=== PATIENT | female | born 1995 | race Two or more races ===

== ENCOUNTER 2024-10-31 09:54 | Outpatient (CLI) | payer OTHER | END 2024-10-31 09:57 | disposition home or self-care (01) | LOC: SONOGRAMA 09:54 | PROVIDERS: ATTEND Pathology Anatomic Pathology & Clinical Pathology | DX: D44.0 Neoplasm of uncertain behavior of thyroid gland (principal); E04.2 Nontoxic multinodular goiter ==

== ENCOUNTER 2024-12-21 08:15 | Inpatient (IN) | payer OTHER ==
[~2024-12-21] VITALS: Ht 162.6 cm; Wt 174.6 kg
[2024-12-21 09:05] LABS: HEMATOCRIT 35.4 % (36.0-45.00); HEMOGLOBIN 11.7 g/dL (12.0-15.00); MEAN CELL VOLUME 80.5 fL (80.00-100.00); MEAN CORPUSCULAR HEMOGLOBIN 26.6 pg (27.00-32.0); MEAN CORPUSCULAR HGB CONC 33.1 g/dl (32.0-36.0); PLATELET COUNT 270 K/uL (150-450); RED CELL DISTRIBUTION WIDTH 15.3 % (11.5-14.5)
[2024-12-21 09:08] LABS: PH,URINE 6.5 (5.0-8.0); URINE APPEARANCE Clear; URINE BILIRRUBIN Negative (NEGATIVE); URINE BLOOD Negative; URINE COLOR Yellow; URINE GLUCOSE Negative (NEGATIVE); URINE KETONE Negative (NEGATIVE); URINE LEUKOCYTE Negative; URINE NITRATE Negative; URINE PROTEIN Negative (NEGATIVE); URINE UROBILINOGEN 0.2 E.U./dl
[2024-12-21 09:11] LABS: URINE BACTERIA 270.5 uL (0.0-1933); URINE RBC 13.6 uL (0.0-20.8); URINE WBC 6.1 uL (0.0-23.2)
[2024-12-21 09:23] LABS: URINE CAST 0.14 uL (0.0-1.40)
[2024-12-21 09:38] VITALS: BP 131/82
[2024-12-21 09:43] LABS: INR 1.04; PARTIAL THROMBOPLASTIN TIME 31.1 SECONDS (22.0-34.0); PROTHROMBIN TIME 11.3 SECONDS (9.0-11.5)
[2024-12-21 10:13] LABS: ALBUMIN 3.3 gm/dL (3.4-5.0); BILIRUBIN TOTAL 0.44 mg/dL (0.3-1.2); CALCIUM 8.8 mg/dL (8.5-10.1); CREATININE SERUM 0.67 mg/dL (0.55-1.02); GFR 104.06; GLOBULINA 3.9 G/DL (2.4-3.5); POTASSIUM 4.35 mEq/L (3.5-5.1); TOTAL PROTEIN 7.2 gm/dL (6.4-8.2)
[2024-12-29] MEDS ORDERED: DEXAMETHASONE SODIUM PHOSPHATE 4 MG/ML VIAL ONE (12:02)
[2024-12-29] MEDS ORDERED: OXYMETAZOLINE HCL 15 ML BOTTLE NASAL ONE (13:51)
[2024-12-29] MEDS ORDERED: ONDANSETRON HCL 2 MG/ML VIAL IV PRN (14:00)
[2024-12-29] MEDS ORDERED: ENALAPRILAT DIHYDRATE 1.25 MG/ML VIAL IV PRN (14:00)
[2024-12-29] MEDS ORDERED: MORPHINE SULFATE 4 MG/ML VIAL IV ONE (16:35)
[2024-12-29] MEDS ORDERED: GABAPENTIN 100 MG CAPSULE PO SCH (17:00)
[2024-12-29] MEDS ORDERED: TRAMADOL HCL 50 MG TABLET PO SCH (17:00)
[2024-12-29] MEDS ORDERED: ACETAMINOPHEN 500 MG GEL..CAP PO SCH (17:00)
[2024-12-29] MEDS ORDERED: CYCLOBENZAPRINE HCL 5 MG TABLET PO SCH (17:00)
[2024-12-29 19:41] VITALS: BP 136/87; O2SAT 95
[2024-12-29] MEDS ORDERED: DIPHENHYDRAMINE HCL 30 MG,LIDOCAINE HCL 30 ML,MAG HYDROX/ALUMINUM HYD/SIMETH 30 ML PO SCH (19:47)
[2024-12-30 00:11] VITALS: BP 131/78; O2SAT 98
[2024-12-30 08:00] VITALS: BP 128/77; O2SAT 96
[2024-12-30] MEDS ORDERED: DIPHENHYDRAMINE HCL 150 MG,LIDOCAINE HCL 60 ML,MAG HYDROX/ALUMINUM HYD/SIMETH 60 ML PO SCH (09:00)
== END 2024-12-30 14:48 | disposition home or self-care (01) | DRG 627 ==
LOC: O/R 12-29 05:11 → SURG 12-29 05:11 → SURH 12-29 08:15 → SURG 12-29 14:19
PROVIDERS: ADMIT Surgery; ATTEND Surgery
PROC: 0GTG0ZZ Resection of Left Thyroid Gland Lobe, Open Approach (ICD-10-PCS; principal; 2024-12-29 09:45)
DX: C73 Malignant neoplasm of thyroid gland (principal); E04.2 Nontoxic multinodular goiter

== ENCOUNTER 2025-01-30 10:58 | Outpatient (CLI) | payer OTHER | END 2025-01-30 11:03 | disposition home or self-care (01) | LOC: SONOGRAMA 10:58 | PROVIDERS: ATTEND Pathology Anatomic Pathology | DX: E04.2 Nontoxic multinodular goiter (principal); C73 Malignant neoplasm of thyroid gland ==

== ENCOUNTER 2025-02-28 07:15 | Inpatient (IN) | payer OTHER ==
[~2025-02-28] VITALS: Ht 162.6 cm; Wt 181.4 kg
[2025-02-28 08:07] LABS: BASO % 0.4 % (0.1-1.2); EOS # 0.27 (0.04-0.54); EOS % 2.4 % (0.7-7.0); LYMPH # 3.02 (1.18-3.74); LYMPH % 27.1 % (19.3-53.1); MEAN PLATELET VOLUME 10.00 fl (9.4-12.4); MONO # 0.47 (0.24-0.82); MONO % 4.2 % (4.7-12.5); NEUT # 7.25 (1.56-6.13); NEUT % 65.1 % (34.0-71.1); RED CELL DISTRIBUTION WIDTH 14.4 % (11.6-14.4)
[2025-02-28 08:08] LABS: URINE APPEARANCE Clear; URINE BILIRRUBIN Negative (NEGATIVE); URINE BLOOD Negative; URINE COLOR Yellow; URINE GLUCOSE Negative (NEGATIVE); URINE KETONE Negative (NEGATIVE); URINE LEUKOCYTE Negative; URINE NITRATE Negative; URINE PROTEIN Negative (NEGATIVE); URINE UROBILINOGEN 0.2 E.U./dl
[2025-02-28 08:12] LABS: URINE BACTERIA 83.9 uL (0.0-1933); URINE EPITHELIAL CELLS 3.8 uL (0.0-38.8); URINE RBC 9.9 uL (0.0-20.8); URINE WBC 3.2 uL (0.0-23.2)
[2025-02-28 08:14] LABS: URINE CAST 0.14 uL (0.0-1.40)
[2025-02-28 08:28] LABS: INR 1.05
[2025-02-28] MEDS ORDERED: LEVOTHYROXINE25 MCG PO (08:59)
[2025-02-28] MEDS ORDERED: MAXIMUM D3325 MCG PO (09:00)
[2025-02-28 09:01] VITALS: BP 124/66
[2025-02-28 09:33] LABS: ALT/SGPT 27.0 U/L (12-78); AST/SGOT 14.0 U/L (15-37); BILIRUBIN TOTAL 0.54 mg/dL (0.3-1.2); BUN CREA RATIO 19.0 (7.0-25.0); CREATININE SERUM 0.62 mg/dL (0.55-1.02); GFR 113.8; GLOBULINA 3.9 G/DL (2.4-3.5); GLUCOSE FASTING 88.0 mg/dL (65-100); OSMOLALITY SERUM 280.0 MOSM/KG (275-295)
[2025-03-07] MEDS ORDERED: ONDANSETRON HCL 2 MG/ML VIAL IV PRN (12:15)
[2025-03-07] MEDS ORDERED: DEXAMETHASONE SODIUM PHOSPHATE 4 MG/ML VIAL ONE (12:25)
[2025-03-07] MEDS ORDERED: MORPHINE SULFATE 4 MG/ML VIAL IV ONE (14:25)
[2025-03-07] MEDS ORDERED: ACETAMINOPHEN 500 MG GEL..CAP PO SCH (17:00)
[2025-03-07] MEDS ORDERED: LIDOCAINE HCL 30 ML,MAG HYDROX/ALUMINUM HYD/SIMETH 30 ML,DIPHENHYDRAMINE HCL 75 MG MM SCH (17:00)
[2025-03-07] MEDS ORDERED: CYCLOBENZAPRINE HCL 5 MG TABLET PO SCH (17:00)
[2025-03-07] MEDS ORDERED: TRAMADOL HCL 50 MG TABLET PO SCH (17:00)
[2025-03-07 19:46] VITALS: BP 126/82
[2025-03-07] MEDS ORDERED: Calcium Carbonate 1 TAB TABLET PO SCH (21:00)
[2025-03-07] MEDS ORDERED: PANTOPRAZOLE SODIUM 40 MG/VIAL VIAL IV PUSH SCH (21:00)
[2025-03-07] MEDS ORDERED: MAG HYDROX/ALUMINUM HYD/SIMETH 30 ML BLIST.PACK PO ONE (23:34)
[2025-03-08 00:37] VITALS: BP 120/73
[2025-03-08 05:55] VITALS: BP 137/71
[2025-03-08] MEDS ORDERED: LEVOTHYROXINE SODIUM 175 MCG TABLET PO SCH (06:00)
[2025-03-08 08:03] VITALS: BP 134/73
== END 2025-03-08 09:31 | disposition home or self-care (01) | DRG 627 ==
LOC: SURH 03-07 07:15 → O/R 03-07 10:00 → OB/GYN 03-07 17:30
PROVIDERS: ADMIT Surgery; ATTEND Surgery
PROC: 0GTG0ZZ Resection of Left Thyroid Gland Lobe, Open Approach (ICD-10-PCS; principal; 2025-03-07 09:30)
DX: C73 Malignant neoplasm of thyroid gland (principal)

== ENCOUNTER → 2025-05-11 09:31 | Outpatient (CLI) | payer OTHER ==
[~2025-05-11 09:31] MED LIST: LEVOTHYROXINE25 MCG PO; MAXIMUM D3325 MCG PO
== END | disposition home or self-care (01) ==
LOC: NUCLEAR 09:31
PROVIDERS: ATTEND Internal Medicine Sports Medicine
DX: C73 Malignant neoplasm of thyroid gland (principal)